=== PATIENT | male | born 1960 | race Two or more races ===

== ENCOUNTER 2024-03-02 16:01 | Emergency (ER) | payer OTHER ==
[~2024-03-02] VITALS: Ht 170.2 cm; Wt 82.1 kg
[2024-03-02 16:44] LABS: BASOPHILS % (AUTO) 0.4 % (0.0-2.0); EOSINOPHILS % (AUTO) 0.5 % (0.0-6.0); HEMATOCRIT 44 % (39-51); HEMOGLOBIN 14.3 g/dL (13.5-17.5); LYMPHOCYTES % (AUTO) 10.6 % (20.0-44.0); MEAN CORPUSCULAR HEMOGLOBIN 26 PG (26.0-33.0); MEAN CORPUSCULAR HGB CONC 33 g/dl (31.0-36.0); MEAN CORPUSCULAR VOLUME 81 fL (80-96); MONOCYTES # (AUTO) 0.6 K/uL (0.1-1.30); MONOCYTES % (AUTO) 6.3 % (2.0-12.0); NEUTROPHILS % (AUTO) 82.2 % (43.0-81.0); PLATELET COUNT (AUTO) 284 K/uL (150-450); RED BLOOD CELL COUNT(AUTO) 5.42 MIL/uL (4.5-6.0); RED CELL DISTRIBUTION WIDTH 15.1 % (11.5-15.0); WHITE BLOOD COUNT (AUTO) 9.7 K/uL (4.3-11.0)
[2024-03-02 16:52] LABS: CREATININE 1.7 mg/dL (0.6-1.3); POTASSIUM 4.1 mmol/L (3.5-5.1)
[2024-03-02 18:31] VITALS: BP 122/61; TEMP 98.2; O2SAT 100
== END 2024-03-02 18:32 | disposition home or self-care (01) ==
LOC: ER 16:01
DX: M79.10 Myalgia, unspecified site (principal); I10 Essential (primary) hypertension; Z20.822 Contact with and (suspected) exposure to COVID-19; Z60.2 Problems related to living alone
CPT/HCPCS: 36415; 71045-TC; 80048-TC; 85025-TC

== ENCOUNTER 2025-10-01 11:32 | Emergency (ER) | payer BC, OTHER ==
[~2025-10-01] VITALS: Ht 170.2 cm; Wt 78.5 kg
[2025-10-01] MEDS ORDERED: ACETAMINOPHEN ES 500 MG TABLET ONE (12:49)
[2025-10-01] MEDS: ACETAMINOPHEN ES 500 MG TABLET PO ONE (12:51)
[2025-10-01 13:59] VITALS: BP 110/69; TEMP 97.6; O2SAT 98
== END 2025-10-01 14:00 | disposition home or self-care (01) ==
LOC: ER 11:48
DX: M54.2 Cervicalgia (principal); M54.50 Low back pain, unspecified; I10 Essential (primary) hypertension; G89.29 Other chronic pain; G40.909 Epilepsy, unspecified, not intractable, without status epilepticus; W01.10XA Fall on same level from slipping, tripping and stumbling with subsequent striking against unspecified object, initial encounter; Y93.89 Activity, other specified; Y92.89 Other specified places as the place of occurrence of the external cause; Y99.9 Unspecified external cause status
CPT/HCPCS: 70450-TC; 72125-TC